=== PATIENT | female | born 1995 | race Hispanic/Latino ===

== ENCOUNTER 2016-03-31 22:41 | Emergency (ER) | payer SELFPAY ==
[2016-04-01] MEDS ORDERED: DEPO-MEDROL IM ONE (04:49)
[2016-04-01] MEDS ORDERED: BENADRYL PO ONE (04:49)
--- NOTE | 2016-04-01 05:07 | Emergency Department Report ---
ED Rash HPI - HPI Chief Complaint: Skin Rash Stated Complaint: ALLERGIC REACTION/SKIN IRRIATION Time Seen by Provider: 04/01/16 04:42 Rash Symptoms: Yes Itching, No Facial Swelling, No Tongue/Oral Swelling, No Breathing Difficulties, No Choking Sensation, No Wheezing/Dyspnea, No Peeling, No Blistering, No Fever, No Lightheaded, No Malaise, No Myalgias Severity: severe Other History: Patient c/oitchy rash spreading all over her body x few days. Reports hx of eczema which has been stable. States only known exposure is wearing clothes laundered using a new fragranced detergent purchased by her mother. States started breaking out afterwards. denies fever, chills, throat pain or swelling, chest pain or difficulty breathing, weakness. No other acute complaints today. ED Review of Systems ROS: Stated complaint: ALLERGIC REACTION/SKIN IRRIATION Other details as noted in HPI Comment: All other systems reviewed and negative Skin: rash, pruritus. denies: lesions ED Past Medical Hx - Past Medical History Previous Medical History?: Yes Additional medical history: eczema - Surgical History Past Surgical History?: No - Social History Smoking Status: Never Smoker Substance Use Type: None - Medications Home Medications: Home Medications Medication Instructions Recorded Confirmed Last Taken Type Loratadine/Pseudoephedrine 1 tab PO Q12H PRN #30 tablet 04/01/16 Unknown Rx [Claritin-D 12HR] Prednisone [predniSONE 10 mg 10 mg PO .TAPER #1 tab.ds.pk 04/01/16 Unknown Rx (6-Day Pack, 21 Tabs)] Rash Exam - Exam General: Vital signs noted. No distress. Alert and acting appropriately. HEENT: No Periorbital Edema, No Conjuctival Injection, No Chemosis, No Perioral Edema, No Tongue Edema, No Uvular Edema, No Compromised Airway, No Drooling Lungs: Yes Good Air Exchange, No Wheezes, No Ronchi, No Stridor, No Cough, No Labored Respirations, No Retractions, No Use of Accessory Muscles, No Other Abnormal Lung Sounds Heart: Yes Regular Skin: Yes Maculopapular Rash, Yes Erythema, Yes Other (scratching), No Urticarial Rash, No Morbilliform rash, No Bulla(e), No Excoriations, No Weeping , No Tenderness, No Edema, No Encrustations Other: Positive: Abdomen Normal, Neurologic Normal, Musculoskeletal Normal ED Course Vital Signs 03/31/16 22:47 Temperature 98.8 F Pulse Rate 94 H Respiratory 18 Rate Blood Pressure 127/68 O2 Sat by Pulse 100 Oximetry Critical care attestation.: If time is entered above; I have spent that time in minutes in the direct care of this critically ill patient, excluding procedure time. ED Disposition Clinical Impression: Allergic dermatitis Allergic reaction Qualifiers: Encounter type: initial encounter Qualified Code(s): T78.40XA - Allergy, unspecified, initial encounter Disposition: DISCHARGED TO HOME OR SELFCARE Is pt being admited?: No Does the pt Need Aspirin: No Condition: Stable Instructions: Allergies (ED), Contact Dermatitis (ED) Additional Instructions: Follow instructions for care. Avoid known allergens and offending agents. Take medications as prescribed. Follow-up with lubrication technician for follow-up. Return to the ED for new or worsening condition, and certainly if she start experiencing difficulty breathing. Prescriptions: Loratadine/Pseudoephedrine [Claritin-D 12HR] 1 tab PO Q12H PRN #30 tablet PRN Reason: Itching Prednisone [predniSONE 10 mg (6-Day Pack, 21 Tabs)] 10 mg PO .TAPER #1 tab.ds.pk Referrals: PRIMARY CARE, [Primary Care Provider] - 24 Hours CORI FRANKLIN MD [Staff Physician] - 24 Hours
[2016-04-01 05:53] VITALS: BP 122/78
== END 2016-04-01 05:51 | disposition home or self-care (01) ==
LOC: ED 22:41
DX: L23.89 Allergic contact dermatitis due to other agents (principal)
CPT/HCPCS: 96372; 99282; J1040